=== PATIENT | male | born 1945 | race Hispanic/Latino ===

== ENCOUNTER 2024-08-21 01:47 | Emergency (ER) | payer OTHER, MEDICARE ==
[~2024-08-21] VITALS: Ht 177.8 cm; Wt 72.1 kg
--- NOTE | 2024-08-21 02:05 | ERN ---
ED Note History of Present Illness Stated Complaint: C/O UPPER BACK PAIN WITH SOB Chief Complaint: Back Pain-No Injury Time Seen by MD: 02:00 Dictation: This is a 79-year-old male who presented to the emergency room with his with complaints of right-sided upper back pain some shortness of breath. All this started about yesterday and it got worse in the middle of the night. It is pleuritic in nature. He has cough with scant amounts of sputum but no fever chills or rigors. He did not travel any were recently. No hemoptysis. He also reported that he has been burping more in the past few days. No chest pain pressure diaphoresis. The pain in the right upper back does not improve by leaning forward. Temperature 98.4 pulse 56 respirations 20 blood pressure 161/76 pulse oximetry 98% on room air His chronic medical problems include anxiety depression, diabetes mellitus type 2, hypertension, hypercholesterolemia, history of PTSD. Patient is a Allergies: Coded Allergies: No Known Allergies (Unverified Allergy, Unknown, 08/21/24) Home Meds Active Scripts Azithromycin (Zithromax) 250 Mg Tablet, 1 TAB PO AD for 5 Days, #6 TAB 0 Refills 2 the first day followed by 1 for days 2-5 Prov:ALEXANDRO MELCHOR MD 08/21/24 Prednisone (Prednisone) 20 Mg Tablet, 1 TAB PO AD for 6 Days, #14 TAB 0 Refills TAKE 1 TAB BY MOUTH THREE TIMES PER DAY X3 DAYS, THEN TAKE 1 TAB BY MOUTH TWICE A DAY X2 DAYS, THEN TAKE 1 TAB BY MOUTH ONCE A DAY X1 DAY. Prov:ALEXANDRO MELCHOR MD 08/21/24 Past Medical History Past Medical History: Anxiety, Depression, Diabetes-Type II, High Cholesterol, Hypertension, Other Additional Past Medical Hx: HX OF PTSD Surgical History: None Family History: Negative Social History: Smokers (Previous history of smoking. Quit in 1970s), ETOH RN Note Reviewed/Agreed w/PFSH: Yes Review of System Dictation Constitutional: Negative for fever,chills, and weight loss Eyes: Negative for injury, pain,redness, and discharge ENT: Negative for injury,pain or swelling Cardiovascular: Negative for chest pain, palpitations, and edema Respiratory: Negative for shortness of breath, cough, and wheezing, Abdomen/GI: Negative for abdominal pain, nausea, vomiting, diarrhea, and constipation Back: Negative for injury and positive for pain in the right upper back : Negative for injury, bleeding and discharge MS/Extremity: Negative for injury and deformity Skin: Negative for rash, and discoloration Neuro: Negative for headache, weakness, numbness, tingling, and seizure Psych: Negative for suicide ideation, homicidal ideation, and hallucinations Initial Vital Sign VS Vital Signs Date Time Temp Pulse Resp B/P (MAP) Pulse Ox O2 Delivery O2 Flow Rate FiO2 08/21/24 01:52 98.4 56 20 161/76 98 Room Air 08/21/24 02:47 0 21 Physical Exam Dictation General: awake, alert, NAD thin male who is not in any distress Head/Face: Normocephalic, atraumatic Eyes: PERRL, EOMI, vision at baseline ENT: oral cavity clear, TMs clear, no signs of infection Neck: Trachea midline, supple, no nuchal rigidity Cardiovascular: RRR, normal S1/S2, No MRGs, no JVD Respiratory: CTAB, no respiratory distress, No rales or wheezes pleural rub in the upper right back Abdomen: Soft, non-tender, non-distended, normal bowel sounds, no guarding or rebound. Skin: Warm, dry, normal turgor, no rash MS/Extremity: Pulses equal, no cyanosis, neurovascular intact, FROM Neuro: COAx4, GCS 15, strength 5/5, CN 2-12 intact, normal cerebellar exam, normal gait, Psych: Normal behavior, mood, and affect normal Extremities-trace edema without any palpable cords, Homans sign is negative Results (Laboratory/Radiology) Laboratory/Radiology Laboratory Tests Test 08/21/24 02:05 White Blood Count 11.6 K/uL (4.8-10.8) H Red Blood Count 4.57 MIL/uL (4.50-6.20) Hemoglobin 14.1 g/dL (14.0-18.0) Hematocrit 43.0 % (42-54) Mean Corpuscular Volume 94.1 fL (79-99) Mean Corpuscular Hemoglobin 30.9 pg (27.0-33.0) Mean Corpuscular Hemoglobin Concent 32.8 g/dL (32.0-36.0) Red Cell Distribution Width 13.1 % (11.0-15.5) Platelet Count 216 K/uL (130-400) Mean Platelet Volume 11.0 fL (7.5-10.5) H Immature Granulocyte % (Auto) 0.2 % (0-1) Neutrophils (%) (Auto) 51.4 % (40.0-77.0) Lymphocytes (%) (Auto) 38.7 % (21.0-51.0) Monocytes (%) (Auto) 8.2 % (3.0-13.0) Eosinophils (%) (Auto) 1.2 % (0.0-8.0) Basophils (%) (Auto) 0.3 % (0.0-5.0) Neutrophils # (Auto) 5.9 K/uL (1.8-7.7) Lymphocytes # (Auto) 4.5 K/uL (1.0-4.8) Monocytes # (Auto) 1.0 K/uL (0.1-1.0) Eosinophils # (Auto) 0.14 K/uL (0.00-0.70) Basophils # (Auto) 0.04 K/uL (0.00-0.20) Absolute Immature Granulocyte (auto 0.02 K/uL (0-1) Nucleated Red Blood Cells 0.0 % (0.0-0.19) Sodium Level 138 mmol/L (136-145) Potassium Level 4.0 mmol/L (3.5-5.1) Chloride Level 103 mmol/L (101-111) Carbon Dioxide Level 27 mmol/L (21-32) Blood Urea Nitrogen 24 mg/dL (7-18) H Creatinine 1.1 mg/dL (0.5-1.3) Glomerular Filtration Rate Calc 69 mL/min (>90) Random Glucose 117 mg/dL (70-105) H Total Calcium 9.0 mg/dL (8.5-10.1) Total Creatine Kinase 120 U/L (21-232) Troponin I High Sensitivity 5.9 ng/L (4-75) B-Type Natriuretic Peptide 20 pg/mL (0-100) Labs Reviewed?: Yes ED Course ED Course Orders Procedure Category Date Status Time Cardiac Panel LAB 08/21/24 Complete 02:03 Cbc With Differential LAB 08/21/24 Complete 02:03 Basic Metabolic Panel LAB 08/21/24 Complete 02:03 B-Type Natriuretic LAB 08/21/24 Complete Peptide 02:03 Urinalysis Profile LAB 08/21/24 Logged 02:03 12 Lead Ekg Tracing- EKG 08/21/24 Logged Technical 02:03 Chest 1vw RAD 08/21/24 Taken 02:03 Methylprednisolone PHA 08/21/24 Complete Succ 125mg (Solu-Medr 02:30 Morphine 2mg Syg PHA 08/21/24 Complete (Morphine 2mg Syg) 02:30 Ketorolac PHA 08/21/24 Complete Tromethamine 15mg/Ml 03:30 Current Medications Medications (Trade) Dose Ordered Sig/Cammie Route PRN Reason Start Time Stop Time Status Last Admin Dose Admin Ketorolac Tromethamine (toRADol) 15 mg ONCE ONCE IV 08/21/24 03:30 08/21/24 03:36 DC 08/21/24 03:41 Methylprednisolone Sodium Succinate (Solu-medROL 125MG) 125 mg ONCE ONCE IVP 08/21/24 02:30 08/21/24 02:31 DC 08/21/24 02:27 Morphine Sulfate (morPHINE 2MG SYG) 2 mg ONCE ONCE IVP 08/21/24 02:30 08/21/24 02:31 DC 08/21/24 02:28 Vital Signs Date Time Temp Pulse Resp B/P (MAP) Pulse Ox O2 Delivery O2 Flow Rate FiO2 08/21/24 03:45 56 18 128/71 97 Room Air* 0 21 08/21/24 02:47 62 18 141/81 98 Room Air* 0 21 08/21/24 01:52 98.4 56 20 161/76 98 Room Air We will perform diagnostic labs, advanced imaging and administer medications according to the patient's complaint. Once the results are available, will revi ew and personally interpreted the labs to rule out any acute life-threatening emergency the trach require immediate intervention and treatment. I will then re-evaluate the patient after treatment and diagnostic exams have return to determine whether the patient requires any further testing, can safely be discharged home or need further admission to hospital for additional treatment and evaluation. Labs reviewed CBC showed a white count of 11.6 BNP 7 is significant for a BUN and creatinine of 24 and 1.1. CK is 120 troponins 5.9. Chest x-ray-no evidence of any focal infiltrate or pleural effusions noted. No cardiomegaly. I updated the patient and spouse on test results in the x-ray findings. 3:46 a.m. patient admits to feeling better discharge to home on a short course of prednisone Medical Decision Making MDM MDM: Differential diagnosis: Pleurisy, musculoskeletal pain, shoulder pain, cervical radiculopathy Rationale: Tests considered and ordered secondary to shared decision making include: Previous outside records reviewed: Old ER visits. Risk of complication and/or morbidity or mortality of patient management: None Medications-Per medication reconciliation Need for hospitalization: Patient does not meet criteria for hospitalization. Need for emergency major/minor surgery: No There are no social concerns with this patient. Prescription drug management Prescriptions will include symptomatic care Patient's prior external medical records from other ER visits were reviewed by me as indicated. Prior testing and results from previous visits were reviewed. Prior tests were taken into account with medical decision making and resource utilization, independent historian/historians were used to obtain complete medical history. I independently interpreted the test that were performed, results were reviewed by me and considered findings on radiology if ordered. Medical management and examination interpretation discussions were had by me with other qualified healthcare professionals as indicated for the patient's care. Problem List Problem List: (1) Pleurisy (2) Acute kidney injury (3) Uncontrolled hypertension DX & DISP Disposition: Discharge Departure Impression: Primary Impression: Pleurisy Additional Impressions: Acute kidney injury, Uncontrolled hypertension Condition: Stable Scripts Azithromycin (Zithromax) 250 Mg Tablet 1 TAB PO AD for 5 Days, #6 TAB 0 Refills 2 the first day followed by 1 for days 2-5 Prov: ALEXANDRO MELCHOR MD 08/21/24 Prednisone (Prednisone) 20 Mg Tablet 1 TAB PO AD for 6 Days, #14 TAB 0 Refills TAKE 1 TAB BY MOUTH THREE TIMES PER DAY X3 DAYS, THEN TAKE 1 TAB BY MOUTH TWICE A DAY X2 DAYS, THEN TAKE 1 TAB BY MOUTH ONCE A DAY X1 DAY. Prov: ALEXANDRO MELCHOR MD 08/21/24 Additional Instructions: Patient and the caregiver have been informed of all the diagnostic tests and the imaging conducted during the today's visit to the emergency room and has verbalized understanding of the results I have personally reviewed and interpreted all diagnostic exams performed here in the ER today as well as the vital signs documented by the nursing staff. The patient is now being discharged to home and should follow up with the primary care physician or the specialist as directed by the ER staff. Follow-up with primary care provider in 1 to 2 days. Take medications as directed here in the emergency room. Okay to continue home medications unless otherwise discussed during your visit in the emergency room today. Return to your nearest emergency room if symptoms worsen or if there is no improvement. Call 911 if you need immediate assistance. Take Tylenol [id number] as needed and if no contraindications are present. Increase oral hydration. A wound culture or urine culture was ordered here in the emergency room department please follow-up with primary care provider and advise them to get repeat ports from our facility. If you had any Mario wrap/splints that were applied here, please do not remove them until you see your primary care or specialty. Avoid nonsteroidal anti-inflammatory agents and follow up with the primary for repeat renal function Referrals: SELF,REFERRAL (PCP) ALEXANDRO MELCHOR MD Aug 21, 2024 02:05
[2024-08-21 02:16] LABS: BASOPHILS # (AUTO) 0.04 K/uL (0.00-0.20); BASOPHILS % (AUTO) 0.3 % (0.0-5.0); EOSINOPHILS # (AUTO) 0.14 K/uL (0.00-0.70); EOSINOPHILS % (AUTO) 1.2 % (0.0-8.0); IMMATURE GRANULOCYTE ABSOLUTE 0.02 K/uL (0-1); LYMPHOCYTES # (AUTO) 4.5 K/uL (1.0-4.8); LYMPHOCYTES % (AUTO) 38.7 % (21.0-51.0); MEAN CORPUSCULAR HEMOGLOBIN 30.9 pg (27.0-33.0); MEAN CORPUSCULAR HGB CONC 32.8 g/dL (32.0-36.0); MEAN CORPUSCULAR VOLUME 94.1 fL (79-99); MONOCYTES % (AUTO) 8.2 % (3.0-13.0); NEUTROPHILS # (AUTO) 5.9 K/uL (1.8-7.7); NEUTROPHILS % (AUTO) 51.4 % (40.0-77.0); PLATELET COUNT (AUTO) 216 K/uL (130-400); RED BLOOD CELL COUNT(AUTO) 4.57 MIL/uL (4.50-6.20); RED CELL DISTRIBUTION WIDTH 13.1 % (11.0-15.5); WHITE BLOOD COUNT (AUTO) 11.6 K/uL (4.8-10.8)
[2024-08-21 02:24] LABS: CREATININE 1.1 mg/dL (0.5-1.3)
[2024-08-21] MEDS: Solu-medROL 125MG VIAL IVP ONE (02:27)
[2024-08-21] MEDS: morPHINE 2 MG SYG IVP ONE (02:28)
[2024-08-21 02:36] LABS: B-TYPE NATRIURETIC PEPTIDE 20 pg/mL (0-100)
[2024-08-21] MEDS ORDERED: AZIT250T PO (03:11)
[2024-08-21] MEDS ORDERED: PRED20TA3 PO (03:11)
[2024-08-21] MEDS: ketOROlac 15MG/ML VIAL (15MG/ML) IV ONE (03:41)
[2024-08-21 04:39] VITALS: BP 129/74; PULSE 58; RESP 18; TEMP 98.2; O2SAT 97
--- NOTE | 2024-08-21 06:35 | EKG ---
[facility] [place] Test Date: 2024-08-21 Test Time: 02:11:12 Pat Name: SHAHBAZ ROSALES Department: [facility] [place] [facility] [id number] Room: Gender: Mold Filler: [id number] : 1945 Requested By: ALEXANDRO MELCHOR Order Number: [id number] Reading MD: Mignon Eckert Measurements Intervals Tovey Rate: 59 P: 45 MS: 171 QRS: 11 QRSD: 81 T: 29 QT: 386 QTc: 382 Interpretive Statements Sinus rhythm ST elevation suggests acute pericarditis No previous ECG available for comparison Electronically Signed On 08-21-2024 18:53:39 CDT by Mignon Eckert Please click the below link to view image of tracing.
--- NOTE | 2024-08-21 08:42 | HMCIMG ---
Exam Type: CHEST 1VW Clinical Information: SOB Comparison: None Findings: The lungs are clear of infiltrates. The heart is normal in size. The bony and soft tissue structures of the chest are unremarkable. Impression: Clear lungs.
== END 2024-08-21 04:41 | disposition home or self-care (01) ==
LOC: EDH 01:47
DX: R09.1 Pleurisy (principal); N17.9 Acute kidney failure, unspecified; I10 Essential (primary) hypertension; E11.9 Type 2 diabetes mellitus without complications; E78.00 Pure hypercholesterolemia, unspecified; F17.200 Nicotine dependence, unspecified, uncomplicated; F32.A Depression, unspecified; F41.9 Anxiety disorder, unspecified; Z79.899 Other long term (current) drug therapy
CPT/HCPCS: 99285; 96374; 96375; 71045; 82550; 84484; 80048; 83880; 85025; 36415; 93005; J1885; J2919; J2270